=== PATIENT | male | born 1985 | race African-American/Black ===

== ENCOUNTER 2017-12-15 19:40 | Emergency (ER) | payer MEDICAID ==
[~2017-12-15] VITALS: Ht 167.6 cm; Wt 91.2 kg
[2017-12-15 19:40] VITALS: BP_SYST 114
--- NOTE | 2017-12-15 20:00 | NUR ---
Patient placed on Hallway.
--- NOTE | 2017-12-15 20:10 | NUR ---
Patient is a 32-year-old male who presents to the emergency due to mild and throbbing pain after slamming his right 5th finger against the car door. Patient does not remember is he had any Tetanus shot.
[2017-12-15] MEDS ORDERED: DIPH-TET-PERTUS Vaccine 0.5 ML VIAL (ADACEL) I.M. ONE (21:30)
[2017-12-15] MEDS ORDERED: BACITRACIN 1 GM OINT TP ONE (21:30)
--- NOTE | 2017-12-15 21:30 | NUR ---
Wound care done By Dr. Delgado.
[2017-12-15 21:35] VITALS: BP_SYST 124
--- NOTE | 2017-12-15 21:35 | NUR ---
Patient given written and verbal discharge instructions and verbalizes understanding. ER MD discussed with patient the results and treatment provided. Patient in stable condition. ID arm band removed. Patient educated on pain management and to follow up with PMD. Pain Scale o/10. Opportunity for questions provided and answered. Medication side effect fact sheet provided.
== END 2017-12-15 21:35 | disposition home or self-care (01) ==
LOC: SED 19:40
DX: S69.91XA Unspecified injury of right wrist, hand and finger(s), initial encounter (principal); Z88.0 Allergy status to penicillin; W23.0XXA Caught, crushed, jammed, or pinched between moving objects, initial encounter; Y93.89 Activity, other specified; Y92.89 Other specified places as the place of occurrence of the external cause; Y99.8 Other external cause status
CPT/HCPCS: 73140-TC; 90715; 99284

== ENCOUNTER 2018-04-08 14:22 | Emergency (ER) | payer MEDICAID ==
[~2018-04-08] VITALS: Ht 167.6 cm; Wt 91.2 kg
[2018-04-08 14:39] VITALS: BP_SYST 110
[2018-04-08] MEDS ORDERED: KETOROLAC TROMETHAMINE 30 MG VIAL IM ONE (15:15)
[2018-04-08 16:00] VITALS: BP_SYST 110
== END 2018-04-08 16:00 | disposition home or self-care (01) ==
LOC: SED 14:22
DX: M77.9 Enthesopathy, unspecified (principal); R03.0 Elevated blood-pressure reading, without diagnosis of hypertension; Z88.0 Allergy status to penicillin
CPT/HCPCS: 73080; 96372; 99284; J1885

== ENCOUNTER 2018-12-19 23:04 | Emergency (ER) | payer MEDICAID ==
[~2018-12-19] VITALS: Ht 167.6 cm; Wt 95.3 kg
[2018-12-19 23:26] VITALS: BP_SYST 129
--- NOTE | 2018-12-19 23:31 | NUR ---
Patient triaged and placed in waiting room. VSS and patient appears in no acute distress at this time. Accompanied by self, awaiting available bed, and MD notified of need for MSE.
--- NOTE | 2018-12-20 02:17 | NUR ---
Patient to ER bed 3 to gown for evaluation. Side rails up.
== END 2018-12-20 03:08 | disposition left against medical advice (07) ==
LOC: SED 23:04
DX: M25.561 Pain in right knee (principal); Z53.21 Procedure and treatment not carried out due to patient leaving prior to being seen by health care provider

== ENCOUNTER 2021-11-25 22:01 | Emergency (ER) | payer MEDICAID ==
[~2021-11-25] VITALS: Ht 167.6 cm; Wt 87.5 kg
[2021-11-25 22:21] VITALS: BP_SYST 131
--- NOTE | 2021-11-25 22:27 | NUR ---
Patient triaged and placed in waiting room. VS checked and patient appears in no acute distress at this time. Accompanied by self, awaiting available bed, and MD notified of need for MSE.
[2021-11-26] MEDS ORDERED: KETOROLAC TROMETHAMINE 30 MG VIAL IM ONE (00:15)
--- NOTE | 2021-11-26 00:54 | NUR ---
Pt to bed 8 for eval
--- NOTE | 2021-11-26 01:03 | NUR ---
Pt awake a/o x4. speech clear and coherent. pt c/o right knee pain 05/11 x3 days, denies injury / trauma. pt states he did a lot of walking over the past few days d/t work. pt able to ambulate and able to bear weight on ble. will continue to monitor.
--- NOTE | 2021-11-26 01:35 | NUR ---
jovi wrap to right knee, pt pamella well
--- NOTE | 2021-11-26 01:35 | NUR ---
Pt discharged. Pt awake a/o x4. aci reviewed with pt, verbalized understanding. to follow up with pmd within the next 2-3 days or return to ed if condition worsens. vs stable. ambulatory with steady gait unassisted. rates pain 0/10. nad.
[2021-11-26 01:37] VITALS: BP_SYST 102
== END 2021-11-26 01:37 | disposition home or self-care (01) ==
LOC: SED 22:01
DX: M25.561 Pain in right knee (principal)
CPT/HCPCS: 73564; 96372; 99283; J1885